=== PATIENT | female | born 1965 | race Asian ===

== ENCOUNTER 2017-12-30 12:28 | Day surgery (SDC) | payer BC ==
[2017-12-30] MEDS ORDERED: MIDAZOLAM 1 MG/ML 2 ML INJ ×3 (14:07)
[2017-12-30] MEDS ORDERED: FENTAnyl 50 MCG/ML VIAL (14:08)
== END 2017-12-30 17:02 | disposition home or self-care (01) ==
LOC: GIL 12:28
DX: Z12.11 Encounter for screening for malignant neoplasm of colon (principal); K64.8 Other hemorrhoids
CPT/HCPCS: 45378; 84703

== ENCOUNTER 2018-05-17 08:47 | Observation (INO) | payer BC ==
[2018-05-17 09:38] LABS: ADD MAN DIFF? NO
[2018-05-17 09:39] LABS: WHITE BLOOD COUNT 8.6 10^3/ul (4.8-10.8)
[2018-05-17 09:39] LABS: BASOPHIL # 0.1 10^3/ul (0.0-0.1); BASOPHILS % 0.6 % (0.0-2.0); EOSINOPHILS # 0.2 10^3/ul (0.0-0.5); EOSINOPHILS % 2.1 % (0.0-7.0); HEMATOCRIT 40.7 % (37.0-47.0); HEMOGLOBIN 13.3 g/dl (12.0-16.0); LYMPHOCYTES # 2.6 10^3/ul (0.8-2.9); LYMPHOCYTES % 30.2 % (15.0-51.0); MEAN CORPUSCULAR HEMOGLOBIN 27.9 pg (29.0-33.0); MEAN CORPUSCULAR HGB CONC 32.7 g/dl (32.0-37.0); MEAN CORPUSCULAR VOLUME 85.3 fl (82.0-101.0); MEAN PLATELET VOLUME 9.4 fl (7.4-10.4); MONOCYTE # 0.5 10^3/ul (0.3-0.9); MONOCYTES % 5.2 % (0.0-11.0); NEUTROPHIL # 5.3 10^3/ul (1.6-7.5); NEUTROPHILS % 61.7 % (39.0-77.0); PLATELET COUNT 305 10^3/UL (140-415); RED BLOOD COUNT 4.77 10^6/ul (4.20-5.40); RED CELL DISTRIBUTION WIDTH 13.1 % (11.5-14.5)
[2018-05-17] MEDS: ASPIRIN 81 MG TAB PO (09:53)
[2018-05-17] MEDS: NITROGLYCERIN 2% 1 GM OINT PKT TD (09:53)
[2018-05-17] MEDS: NITROGLYCERIN (SL) 0.4 MG TAB SL (09:54)
[2018-05-17 09:56] LABS: ANION GAP 11 (5-13); BLOOD UREA NITROGEN 16 mg/dl (7-20); CARBON DIOXIDE 28 mmol/L (21-31); CHLORIDE 105 mmol/L (97-110); CREATININE 0.65 mg/dl (0.44-1.00); Estimated GFR > 60 mL/min (>60); GLUCOSE 76 mg/dl (70-220); POTASSIUM 3.7 mmol/L (3.5-5.1); SODIUM 144 mmol/L (135-144)
[2018-05-17 10:08] LABS: TROPONIN-I < 0.012 ng/ml (0.000-0.120)
[2018-05-17] MEDS ORDERED: ACETAMINOPHEN 325 MG TAB PO (12:00)
[2018-05-17] MEDS ORDERED: ONDANSETRON 4 MG INJ IV ×2 (12:00→12:30)
[2018-05-17] MEDS ORDERED: DOCUSATE SODIUM 100 MG CAP PO (12:30)
[2018-05-17] MEDS ORDERED: morphine 2 MG INJ IV (12:30)
[2018-05-17] MEDS ORDERED: NITROGLYCERIN (SL) 0.4 MG TAB SL (12:30)
[2018-05-17] MEDS ORDERED: MAGNESIUM HYDROXIDE 30ML CUP PO (12:30)
[2018-05-17] MEDS ORDERED: ALBUTEROL/IPRATROPIUM (NEB) 3 ML AMP HHN (12:30)
[2018-05-17] MEDS ORDERED: hydrALAzine 20 MG INJ IV (12:30)
[2018-05-17] MEDS ORDERED: HYDROCODONE/APAP (5/325) TAB PO (12:30)
[2018-05-17] MEDS ORDERED: NACL 0.9% 3 ML SYG IV (12:30)
[2018-05-17 13:10] LABS: FREE T4 (FREE THYROXINE) 0.88 ng/dl (0.64-1.79)
[2018-05-17 13:12] LABS: CREATINE KINASE 44 IU/L (23-200)
[2018-05-17 13:25] LABS: CK INDEX 0.6; CK-MB 0.25 ng/ml (0.0-2.4); TROPONIN-I < 0.012 ng/ml (0.000-0.120)
[2018-05-17] MEDS: ACETAMINOPHEN 325 MG TAB PO ×2 (16:49→21:17)
[2018-05-17] MEDS: SOD CHLORIDE 0.45% 1,000 ML IV (16:50)
[2018-05-17] MEDS: PANTOPRAZOLE (EC) 40 MG TAB PO (18:17)
[2018-05-17 20:05] LABS: CREATINE KINASE 38 IU/L (23-200)
[2018-05-17 20:16] LABS: CK INDEX 0.6; CK-MB < 0.22 ng/ml (0.0-2.4); TROPONIN-I < 0.012 ng/ml (0.000-0.120)
[2018-05-17] MEDS: FAMOTIDINE 20 MG INJ IV (21:06)
[2018-05-17] MEDS: HEPARIN 5,000 UNIT/1 ML VIAL SC (21:13)
[2018-05-17] MEDS: LORAZEPAM 2 MG INJ IV (22:55)
[2018-05-18 01:08] LABS: CREATINE KINASE 40 IU/L (23-200)
[2018-05-18 01:19] LABS: CK INDEX 0.6; CK-MB 0.24 ng/ml (0.0-2.4); TROPONIN-I < 0.012 ng/ml (0.000-0.120)
[2018-05-18] MEDS: SOD CHLORIDE 0.45% 1,000 ML IV (01:47)
[2018-05-18] MEDS: PANTOPRAZOLE (EC) 40 MG TAB PO (06:39)
[2018-05-18 06:53] LABS: ADD MAN DIFF? NO
[2018-05-18 06:55] LABS: BASOPHIL # 0.1 10^3/ul (0.0-0.1); BASOPHILS % 0.5 % (0.0-2.0); EOSINOPHILS # 0.3 10^3/ul (0.0-0.5); EOSINOPHILS % 2.3 % (0.0-7.0); HEMATOCRIT 37.7 % (37.0-47.0); HEMOGLOBIN 12.4 g/dl (12.0-16.0); LYMPHOCYTES # 2.7 10^3/ul (0.8-2.9); MEAN CORPUSCULAR HEMOGLOBIN 28.1 pg (29.0-33.0); MEAN CORPUSCULAR HGB CONC 32.9 g/dl (32.0-37.0); MEAN CORPUSCULAR VOLUME 85.5 fl (82.0-101.0); MEAN PLATELET VOLUME 9.3 fl (7.4-10.4); MONOCYTE # 0.7 10^3/ul (0.3-0.9); MONOCYTES % 6.8 % (0.0-11.0); NEUTROPHIL # 7.2 10^3/ul (1.6-7.5); NEUTROPHILS % 65.1 % (39.0-77.0); PLATELET COUNT 293 10^3/UL (140-415); RED BLOOD COUNT 4.41 10^6/ul (4.20-5.40); RED CELL DISTRIBUTION WIDTH 13.2 % (11.5-14.5)
[2018-05-18 07:07] LABS: HEMOGLOBIN A1C 5.2 % (0-5.9)
[2018-05-18 07:23] LABS: CREATINE KINASE 38 IU/L (23-200)
[2018-05-18 07:24] LABS: ANION GAP 10 (5-13); BLOOD UREA NITROGEN 13 mg/dl (7-20); CALCIUM 9.2 mg/dl (8.4-10.2); CARBON DIOXIDE 27 mmol/L (21-31); CHLORIDE 104 mmol/L (97-110); CREATININE 0.66 mg/dl (0.44-1.00); Estimated GFR > 60 mL/min (>60); GLUCOSE 92 mg/dl (70-220); MAGNESIUM 2.2 mg/dl (1.7-2.5); PHOSPHORUS 3.8 mg/dl (2.5-4.9); POTASSIUM 4.4 mmol/L (3.5-5.1); SODIUM 141 mmol/L (135-144)
[2018-05-18 07:27] LABS: CHOL/HDL RATIO 3.9 RATIO; HDL CHOLESTEROL 51 mg/dl (37-92); LDL CHOLESTEROL,CALCULATED 125 mg/dl; TRIGLYCERIDES 130 mg/dl (0-149)
[2018-05-18 07:27] LABS: CHOLESTEROL 202 mg/dl (100-200)
[2018-05-18 07:34] LABS: CK INDEX 0.6; CK-MB < 0.22 ng/ml (0.0-2.4); TROPONIN-I < 0.012 ng/ml (0.000-0.120)
[2018-05-18] MEDS: FAMOTIDINE 20 MG INJ IV (08:58)
[2018-05-18] MEDS: ASPIRIN (EC) 325 MG TAB PO (08:59)
[2018-05-18] MEDS: HEPARIN 5,000 UNIT/1 ML VIAL SC (09:09)
[2018-05-18] MEDS: ACETAMINOPHEN 325 MG TAB PO (09:14)
== END 2018-05-18 11:20 | disposition home or self-care (01) ==
LOC: E/R 08:47 → TEL 11:58
DX: R07.9 Chest pain, unspecified (principal); E78.00 Pure hypercholesterolemia, unspecified; K29.70 Gastritis, unspecified, without bleeding
CPT/HCPCS: 36415; 71045; 80048; 80061; 82550; 82553; 83036; 83735; 84100; 84439; 84443; 84484; 85025; 93005; 93306; 99285-25; G0378